=== PATIENT | female | born 1980 | race Caucasian/White ===

== ENCOUNTER 2023-10-23 10:55 | Emergency (ER) | payer BC, MEDICAID ==
[~2023-10-23] VITALS: Ht 167.6 cm; Wt 78.3 kg
[~2023-10-23 10:55] MED LIST: INSU100I27 SQ; LEVO75TA PO; THY60T PO
[2023-10-23 11:51] VITALS: BP 126/76; PULSE 87; RESP 18; TEMP 98.6; O2SAT 99
[2023-10-23 12:37] LABS: BILIRUBIN,URINE NEGATIVE (Neg); CLARITY,URINE SLIGHTLY CLOUDY (Clear); COLOR,URINE YELLOW (Yellow); GLUCOSE, URINE 250 mg/dl (Neg); KETONES,URINE 15 mg/dl (Neg); LEUKOCYTE ESTERASE ,URINE SMALL (Neg); NITRITES, URINE NEGATIVE (Neg); OCCULT BLOOD,URINE SMALL (Neg); PROTEIN,URINE NEGATIVE (Neg); UROBILINOGEN,URINE 0.2 E.U/dL (0.2-1.0)
[2023-10-23 12:38] LABS: URINE HCG NEGATIVE (NEG)
[2023-10-23 12:38] LABS: BASOPHILS % (AUTO) 0.5 % (0-1); EOSINOPHILS # (AUTO) 0.1 X10'3 (0-0.9); EOSINOPHILS % (AUTO) 1.2 % (0-6); HEMATOCRIT 46.5 % (35.0-45.0); HEMOGLOBIN 15.6 g/dl (12.0-16.0); LYMPHOCYTES # (AUTO) 2.4 X10'3 (1.1-4.8); LYMPHOCYTES % (AUTO) 31.1 % (21-51); MEAN CORPUSCULAR HEMOGLOBIN 33.2 PG (27.0-31.0); MEAN CORPUSCULAR HGB CONC 33.6 g/dL (33.0-36.5); MEAN CORPUSCULAR VOLUME 98.9 FL (78-98); MEAN PLATELET VOLUME 8.4 FL (7.4-10.4); MONOCYTES # (AUTO) 0.8 X10'3 (0-0.9); MONOCYTES % (AUTO) 10.4 % (2-12); NEUTROPHILS # (AUTO) 4.4 X10'3 (1.8-7.7); NEUTROPHILS % (AUTO) 56.8 % (42-75); PLATELET COUNT 265 X10'3 (140-440); RED CELL DISTRIBUTION WIDTH 12.2 % (11.5-14.5); WHITE BLOOD COUNT 7.7 X10'3 (4.5-11.0)
[2023-10-23 12:39] LABS: UA COLLECTION TYPE CLN CATCH MIDSTREAM
[2023-10-23 12:43] LABS: BACTERIA,URINE 3+ /HPF (Neg); MUCUS STRANDS NONE SEEN /LPF (Neg); RBC,URINE 0-2 /HPF (0-2); SQUAMOUS EPITHELIAL CELL,UR MANY /LPF (FEW)
[2023-10-23 12:48] LABS: ACETONE NEGATIVE (NEGATIVE)
[2023-10-23 12:49] LABS: ALANINE AMINOTRANSFERASE 23 U/L (12-78); ALBUMIN 3.5 G/DL (3.4-5.0); ALBUMIN/GLOBULIN RATIO 0.9 (1.1-1.5); ALKALINE PHOSPHATASE 48 IU/L (46-116); ANION GAP 10 (8-16); ASPARTATE AMINO TRANSFERASE 16 U/L (10-37); BILIRUBIN,TOTAL 0.4 MG/DL (0.1-1.0); BLOOD UREA NITROGEN 12 MG/DL (7-18); BUN/CREATININE RATIO 16.7 (10.0-20.0); CHLORIDE 100 MMOL/L (99-107); CREATININE 0.72 MG/DL (0.40-0.90); GLUCOSE 245 MG/DL (70-104); MAGNESIUM 1.8 MG/DL (1.5-2.4); POTASSIUM 4.2 MMOL/L (3.5-5.1); SODIUM 134 MMOL/L (135-145); TOTAL CARBON DIOXIDE 23.6 MMOL/L (24-32); TOTAL PROTEIN 7.4 G/DL (6.4-8.2); eCRCL 96 ML/MIN; eGFR 89 ML/MIN
[2023-10-23] MEDS ORDERED: SULF1TAB49 PO (13:19)
[2023-10-23] MEDS ORDERED: ONDA4TAB12 PO (13:19)
[2023-10-23] MEDS ORDERED: POLY119P2 PO (13:23)
[2023-10-23] MEDS ORDERED: DOCU-148 PO (13:23)
== END 2023-10-23 14:43 | disposition home or self-care (01) ==
LOC: ER 10:56
DX: N39.0 Urinary tract infection, site not specified (principal); K59.00 Constipation, unspecified; E10.9 Type 1 diabetes mellitus without complications; G89.29 Other chronic pain; Z88.5 Allergy status to narcotic agent; Z88.8 Allergy status to other drugs, medicaments and biological substances; Z79.899 Other long term (current) drug therapy; Z79.4 Long term (current) use of insulin
CPT/HCPCS: 36415; 80053; 81001; 81025; 82009; 82948; 83735; 85025; 99283